=== PATIENT | female | born 1935 | race African-American/Black ===

== ENCOUNTER 2016-10-28 22:55 | Inpatient (IN) | payer MEDICARE, MEDICAID ==
[~2016-10-28] VITALS: Ht 149.9 cm; Wt 58.1 kg
[~2016-10-28 22:55] MED LIST: ACET-3161 PO; ASPI-1159 PO; FERR-63 PO; HYDR-4134 PO; LEVO5TAB13 PO; METO-293 PO; MIRT15TA6 PO; MONT10TA21 PO; MULT-1146 PO; POTA-9 PO; TEMA15CA PO
[2016-10-28 23:00] VITALS: BP 148/55
[2016-10-28 23:30] VITALS: BP 148/55
[2016-10-29] MEDS ORDERED: GUAIFENESIN 200MG/10ML SUGAR FREE UDC PO PRN
[2016-10-29] MEDS ORDERED: IPRATROPIUM/ALBUTEROL 0.5-3(2.5)MG/3ML NEB HHN PRN
[2016-10-29] MEDS ORDERED: ONDANSETRON HCL 4MG/2ML VIAL IV PRN
[2016-10-29] MEDS ORDERED: DEXTROSE 50% WATER 50ML SYRINGE IV PRN
[2016-10-29] MEDS: POTASSIUM CHLORIDE 10MEQ TABLET SR PO SCH ×2 (00:52→17:47)
[2016-10-29] MEDS: IPRATROPIUM/ALBUTEROL 0.5-3(2.5)MG/3ML NEB HHN SCH ×6 (01:21→20:43)
[2016-10-29] MEDS: BENZONATATE 100MG CAPSULE PO SCH ×4 (01:33→23:07)
[2016-10-29] MEDS: METRONIDAZOLE 500MG TABLET PO SCH ×3 (05:45→21:50)
[2016-10-29] MEDS: ACETAMINOPHEN 650MG/20.3ML UDC PO PRN ×2 (05:46→23:07)
[2016-10-29] MEDS: DILTIAZEM HCL 30MG TABLET PO SCH ×3 (05:46→21:51)
[2016-10-29] MEDS: INSULIN LISPRO 100 UNITS/ML SUBCUT SCH ×4 (05:47→21:00)
[2016-10-29] MEDS: BLOOD SUGAR DIAGNOSTIC STRIP TEST SCH ×4 (05:47→21:51)
[2016-10-29 06:45] LABS: BASOPHILS % 0.7 % (0.0-2.0); EOSINOPHILS % 7.8 % (0.0-5.0); HEMOGLOBIN. 9.7 g/dL (12.0-16.0); LYMPHOCYTES % 16.9 % (20.0-50.0); MEAN CORPUSCULAR HEMOGLOBIN 29.5 pg (28.0-32.0); MEAN CORPUSCULAR VOLUME 85.2 fL (81.0-99.0); MEAN PLATELET VOLUME 10.9 fl (7.4-10.4); MONOCYTES % 9.8 % (2.0-8.0); NEUTROPHILS % 64.8 % (40.0-76.0); PLATELET 105 x1000/uL (130-400); RED BLOOD CELL COUNT 3.29 mill/uL (4.2-5.4); RED CELL DISTRIBUTION WIDTH 15.5 % (11.6-14.6)
[2016-10-29 08:00] VITALS: BP 145/52
[2016-10-29] MEDS ORDERED: DOCUSATE SODIUM 250MG CAPSULE PO SCH (09:00)
[2016-10-29] MEDS: ASPIRIN 81MG EC TABLET PO SCH (09:55)
[2016-10-29] MEDS: DOCUSATE SODIUM 250MG CAPSULE PO SCH (09:55)
[2016-10-29] MEDS: ENOXAPARIN 30MG/0.3ML SYR SUBCUT SCH (09:57)
[2016-10-29] MEDS: FERROUS SULFATE 325MG TABLET PO SCH ×3 (09:57→17:47)
[2016-10-29] MEDS: LEVOFLOXACIN 250MG TABLET PO SCH (11:19)
[2016-10-29] MEDS ORDERED: FERROUS SULFATE 325MG TABLET PO SCH (18:00)
[2016-10-29 20:00] VITALS: BP 138/50
[2016-10-29] MEDS: MIRTAZAPINE 15MG TABLET PO SCH (21:50)
[2016-10-29] MEDS: MONTELUKAST SODIUM 10MG TABLET PO SCH (21:51)
[2016-10-30] MEDS: IPRATROPIUM/ALBUTEROL 0.5-3(2.5)MG/3ML NEB HHN SCH ×6 (00:50→21:01)
[2016-10-30 05:34] LABS: BASOPHILS % 0.9 % (0.0-2.0); EOSINOPHILS % 8.4 % (0.0-5.0); HEMATOCRIT. 28.4 % (36.0-48.0); HEMOGLOBIN. 9.4 g/dL (12.0-16.0); LYMPHOCYTES % 16.7 % (20.0-50.0); MEAN CORPUSCULAR HEMOGLOBIN 28.5 pg (28.0-32.0); MEAN PLATELET VOLUME 10.6 fl (7.4-10.4); MONOCYTES % 9.4 % (2.0-8.0); NEUTROPHILS % 64.6 % (40.0-76.0); PLATELET 125 x1000/uL (130-400); RED CELL DISTRIBUTION WIDTH 15.1 % (11.6-14.6)
[2016-10-30] MEDS: BLOOD SUGAR DIAGNOSTIC STRIP TEST SCH ×4 (05:50→21:13)
[2016-10-30] MEDS: INSULIN LISPRO 100 UNITS/ML SUBCUT SCH ×4 (05:51→21:00)
[2016-10-30] MEDS: METRONIDAZOLE 500MG TABLET PO SCH ×3 (05:52→22:30)
[2016-10-30] MEDS: DILTIAZEM HCL 30MG TABLET PO SCH ×3 (05:53→22:00)
[2016-10-30 08:00] VITALS: BP 153/44
[2016-10-30] MEDS: BENZONATATE 100MG CAPSULE PO SCH ×2 (09:32→17:25)
[2016-10-30] MEDS: DOCUSATE SODIUM 250MG CAPSULE PO SCH (09:32)
[2016-10-30] MEDS: ASPIRIN 81MG EC TABLET PO SCH (09:32)
[2016-10-30] MEDS: FERROUS SULFATE 325MG TABLET PO SCH ×3 (09:32→17:25)
[2016-10-30] MEDS: ENOXAPARIN 30MG/0.3ML SYR SUBCUT SCH (09:33)
[2016-10-30] MEDS: LEVOFLOXACIN 250MG TABLET PO SCH (11:30)
[2016-10-30] MEDS: POTASSIUM CHLORIDE 10MEQ TABLET SR PO SCH (17:25)
[2016-10-30 20:00] VITALS: BP 120/44
[2016-10-30] MEDS: MIRTAZAPINE 15MG TABLET PO SCH (21:17)
[2016-10-30] MEDS: MONTELUKAST SODIUM 10MG TABLET PO SCH (21:17)
[2016-10-31] MEDS: IPRATROPIUM/ALBUTEROL 0.5-3(2.5)MG/3ML NEB HHN SCH ×6 (01:08→21:09)
[2016-10-31] MEDS: BENZONATATE 100MG CAPSULE PO SCH ×3 (01:30→16:30)
[2016-10-31] MEDS: DILTIAZEM HCL 30MG TABLET PO SCH ×3 (06:00→22:22)
[2016-10-31] MEDS: BLOOD SUGAR DIAGNOSTIC STRIP TEST SCH ×4 (06:15→22:25)
[2016-10-31] MEDS: INSULIN LISPRO 100 UNITS/ML SUBCUT SCH ×4 (06:15→21:00)
[2016-10-31] MEDS: METRONIDAZOLE 500MG TABLET PO SCH ×3 (06:19→22:21)
[2016-10-31 08:00] VITALS: BP 153/46
[2016-10-31] MEDS: DOCUSATE SODIUM 250MG CAPSULE PO SCH (08:21)
[2016-10-31] MEDS: FERROUS SULFATE 325MG TABLET PO SCH ×3 (08:21→17:40)
[2016-10-31] MEDS: ASPIRIN 81MG EC TABLET PO SCH (08:21)
[2016-10-31] MEDS: ENOXAPARIN 30MG/0.3ML SYR SUBCUT SCH (08:21)
[2016-10-31] MEDS: LEVOFLOXACIN 250MG TABLET PO SCH (11:18)
[2016-10-31] MEDS: POTASSIUM CHLORIDE 10MEQ TABLET SR PO SCH (17:40)
[2016-10-31 20:00] VITALS: BP 150/59
[2016-10-31] MEDS: ACETAMINOPHEN 650MG/20.3ML UDC PO PRN (20:15)
[2016-10-31] MEDS: MONTELUKAST SODIUM 10MG TABLET PO SCH (22:21)
[2016-10-31] MEDS: MIRTAZAPINE 15MG TABLET PO SCH (22:21)
[2016-11-01] MEDS: BENZONATATE 100MG CAPSULE PO SCH ×4 (00:36→23:06)
[2016-11-01] MEDS: IPRATROPIUM/ALBUTEROL 0.5-3(2.5)MG/3ML NEB HHN SCH ×6 (00:45→19:54)
[2016-11-01] MEDS: BLOOD SUGAR DIAGNOSTIC STRIP TEST SCH (06:22)
[2016-11-01] MEDS: METRONIDAZOLE 500MG TABLET PO SCH ×3 (06:25→21:23)
[2016-11-01] MEDS: DILTIAZEM HCL 30MG TABLET PO SCH ×3 (06:26→21:23)
[2016-11-01 08:00] VITALS: BP 146/62
[2016-11-01] MEDS: FERROUS SULFATE 325MG TABLET PO SCH ×3 (08:16→18:06)
[2016-11-01] MEDS: DOCUSATE SODIUM 250MG CAPSULE PO SCH (08:16)
[2016-11-01] MEDS: ASPIRIN 81MG EC TABLET PO SCH (08:16)
[2016-11-01] MEDS: ENOXAPARIN 30MG/0.3ML SYR SUBCUT SCH (08:17)
[2016-11-01] MEDS: INSULIN LISPRO 100 UNITS/ML SUBCUT SCH (08:17)
[2016-11-01] MEDS: LEVOFLOXACIN 250MG TABLET PO SCH (11:12)
[2016-11-01] MEDS: POTASSIUM CHLORIDE 10MEQ TABLET SR PO SCH (18:05)
[2016-11-01 19:00] VITALS: BP 151/55
[2016-11-01] MEDS: MIRTAZAPINE 15MG TABLET PO SCH (21:23)
[2016-11-01] MEDS: MONTELUKAST SODIUM 10MG TABLET PO SCH (21:23)
[2016-11-02] MEDS: IPRATROPIUM/ALBUTEROL 0.5-3(2.5)MG/3ML NEB HHN SCH ×6 (00:05→21:10)
[2016-11-02] MEDS: DILTIAZEM HCL 30MG TABLET PO SCH ×3 (05:15→21:04)
[2016-11-02 06:49] LABS: BASOPHILS % 0.8 % (0.0-2.0); EOSINOPHILS % 8.1 % (0.0-5.0); HEMATOCRIT. 28.3 % (36.0-48.0); HEMOGLOBIN. 9.3 g/dL (12.0-16.0); LYMPHOCYTES % 15.2 % (20.0-50.0); MEAN CORPUSCULAR HEMOGLOBIN 28.7 pg (28.0-32.0); MEAN CORPUSCULAR VOLUME 86.7 fL (81.0-99.0); MEAN PLATELET VOLUME 10.2 fl (7.4-10.4); MONOCYTES % 9.3 % (2.0-8.0); NEUTROPHILS % 66.6 % (40.0-76.0); PLATELET 148 x1000/uL (130-400); RED BLOOD CELL COUNT 3.26 mill/uL (4.2-5.4); RED CELL DISTRIBUTION WIDTH 15.3 % (11.6-14.6)
[2016-11-02 07:28] LABS: CARBON DIOXIDE 22 mEq/L (21-32); CHLORIDE 112 mEq/L (98-107)
[2016-11-02 08:00] VITALS: BP 150/63
[2016-11-02] MEDS: ASPIRIN 81MG EC TABLET PO SCH (08:01)
[2016-11-02] MEDS: DOCUSATE SODIUM 250MG CAPSULE PO SCH (08:01)
[2016-11-02] MEDS: FERROUS SULFATE 325MG TABLET PO SCH ×3 (08:01→16:57)
[2016-11-02] MEDS: ENOXAPARIN 30MG/0.3ML SYR SUBCUT SCH (08:01)
[2016-11-02] MEDS: BENZONATATE 100MG CAPSULE PO SCH ×3 (08:01→23:24)
[2016-11-02] MEDS ORDERED: MULTIVITAMINS,THER W-MINERALS TABLET PO SCH (09:00)
[2016-11-02] MEDS: MULTIVITAMINS,THER W-MINERALS TABLET PO SCH (09:28)
[2016-11-02] MEDS: ASCORBIC ACID 500 MG TABLET PO SCH (09:28)
[2016-11-02] MEDS: LEVOFLOXACIN 250MG TABLET PO SCH (11:03)
[2016-11-02] MEDS: POTASSIUM CHLORIDE 10MEQ TABLET SR PO SCH (17:00)
[2016-11-02 20:00] VITALS: BP 147/59
[2016-11-02] MEDS: MONTELUKAST SODIUM 10MG TABLET PO SCH (21:04)
[2016-11-02] MEDS: MIRTAZAPINE 15MG TABLET PO SCH (21:05)
[2016-11-02] MEDS: ACETAMINOPHEN 650MG/20.3ML UDC PO PRN (21:07)
[2016-11-03] MEDS: IPRATROPIUM/ALBUTEROL 0.5-3(2.5)MG/3ML NEB HHN SCH ×3 (00:40→09:51)
[2016-11-03] MEDS: DILTIAZEM HCL 30MG TABLET PO SCH (05:51)
[2016-11-03 08:00] VITALS: BP 135/50
[2016-11-03] MEDS: DOCUSATE SODIUM 250MG CAPSULE PO SCH (08:33)
[2016-11-03] MEDS: MULTIVITAMINS,THER W-MINERALS TABLET PO SCH (08:33)
[2016-11-03] MEDS: ASPIRIN 81MG EC TABLET PO SCH (08:33)
[2016-11-03] MEDS: FERROUS SULFATE 325MG TABLET PO SCH (08:33)
[2016-11-03] MEDS: BENZONATATE 100MG CAPSULE PO SCH (08:33)
[2016-11-03] MEDS: ASCORBIC ACID 500 MG TABLET PO SCH (08:33)
[2016-11-03] MEDS: ENOXAPARIN 30MG/0.3ML SYR SUBCUT SCH (08:33)
[2016-11-03 10:13] VITALS: BP 135/50
== END 2016-11-03 13:15 | disposition home or self-care (01) | DRG 280 ==
PROVIDERS: ADMIT Psychiatry & Neurology Neurology; ATTEND Internal Medicine Geriatric Medicine
DX: I11.0 Hypertensive heart disease with heart failure (principal); N17.0 Acute kidney failure with tubular necrosis; I21.4 Non-ST elevation (NSTEMI) myocardial infarction; J45.901 Unspecified asthma with (acute) exacerbation; K92.2 Gastrointestinal hemorrhage, unspecified; J44.1 Chronic obstructive pulmonary disease with (acute) exacerbation; E46 Unspecified protein-calorie malnutrition; I50.43 Acute on chronic combined systolic (congestive) and diastolic (congestive) heart failure; I42.0 Dilated cardiomyopathy; M19.90 Unspecified osteoarthritis, unspecified site; K59.09 Other constipation; D50.9 Iron deficiency anemia, unspecified; Z68.25 Body mass index [BMI] 25.0-25.9, adult; D63.8 Anemia in other chronic diseases classified elsewhere; F43.20 Adjustment disorder, unspecified; I35.0 Nonrheumatic aortic (valve) stenosis; G90.8 Other disorders of autonomic nervous system; G47.30 Sleep apnea, unspecified; F32.9 Major depressive disorder, single episode, unspecified; E11.9 Type 2 diabetes mellitus without complications; K57.90 Diverticulosis of intestine, part unspecified, without perforation or abscess without bleeding; K44.9 Diaphragmatic hernia without obstruction or gangrene; Z96.649 Presence of unspecified artificial hip joint; Z96.653 Presence of artificial knee joint, bilateral; Z90.710 Acquired absence of both cervix and uterus; Z95.3 Presence of xenogenic heart valve; Z87.11 Personal history of peptic ulcer disease; Z79.899 Other long term (current) drug therapy; G47.00 Insomnia, unspecified
CPT/HCPCS: 36415; 80048; 82962; 85025; 94640; 97110; 97112; 97116; 97162; 97166; 97530; 97535; A6261; J1650; J7620